=== PATIENT | female | born 1975 | race Caucasian/White ===

== ENCOUNTER → 2019-01-28 13:23 | Outpatient (CLI) | payer OTHER, SELFPAY ==
--- NOTE | 2019-01-28 13:29 | DI.US.S_ITS ---
LIMITED ULTRASOUND OF LEFT BREAST: 01/28/2019 CLINICAL: Palpable left breast lump. [facility] and real-time ultrasound of the left breast retroareolar were performed. Stewart scale images of the real-time examination were reviewed. There is a benign 1.9 cm x 1.5 cm x 1.3 cm cyst in the left breast at 10 o'clock anterior depth. This cyst is anechoic. This correlates as palpated. Color flow imaging demonstrates that there is no vascularity present. IMPRESSION: PROBABLY BENIGN The 1.9 cm x 1.5 cm x 1.3 cm cyst in the left breast is consistent with a simple cyst and is benign. A follow-up left mammogram in 6 months is recommended to demonstrate stability of probably benign calcifications seen by mammogram. Findings and recommendations were conveyed to the patient at time of exam. This exam was interpreted at Station ID: [id number]. Electronically Signed By: Darlene fritz/:01/28/2019 16:55:41 letter sent: Followup Recommended Ultrasound BI-RADS: 3 Probably benign
--- NOTE | 2019-01-28 13:29 | DI.MG.S_ITS ---
BILATERAL DIGITAL DIAGNOSTIC MAMMOGRAM 3D/2D: 01/28/2019 CLINICAL: Left breast lump. No prior exams were available for comparison. The tissue of both breasts is extremely dense, which lowers the sensitivity of mammography. There is a 2 cm round low density mass with an obscured and indistinct margin in the left breast central to the nipple anterior depth. There are also grouped fine rim calcifications in the left breast middle depth central to the nipple seen on the mediolateral oblique view only. No other significant masses, calcifications, or other findings are seen in either breast. IMPRESSION: INCOMPLETE: NEEDS ADDITIONAL IMAGING EVALUATION The grouped fine rim calcifications in the left breast middle depth central to the nipple seen on the mediolateral oblique view only are probably benign. A follow-up mammogram in 6 months is recommended. The 2 cm round low density mass in the left breast central to the nipple anterior depth is indeterminate. An ultrasound is recommended. This was performed immediately following this exam. This exam was interpreted at Station ID: [id number]. NOTE: For mammograms, a report in lay terms will be sent to the patient. Approximately 15% of breast malignancies will not be visualized mammographically. In the management of a palpable breast mass, a negative mammogram must not discourage biopsy of a clinically suspicious lesion. Electronically Signed By: Darlene fritz/:01/28/2019 16:52:58 ACR BI-RADS Category 0: Incomplete 3340F
== END ==
PROVIDERS: PCP Family Medicine; Visit Provider Family Medicine
DX: R92.8 Other abnormal and inconclusive findings on diagnostic imaging of breast (principal); N60.02 Solitary cyst of left breast
CPT/HCPCS: 76642; 77066; G0279

== ENCOUNTER → 2019-08-02 09:12 | Outpatient (CLI) | payer OTHER, SELFPAY ==
--- NOTE | 2019-08-02 09:14 | DI.MG.S_ITS ---
UNILATERAL LEFT DIGITAL DIAGNOSTIC MAMMOGRAM 3D/2D SHORT-TERM FOLLOW-UP: 08/02/2019 CLINICAL: Patient returns for a 6 month follow up of the left breast. Comparison is made to exams dated: 01/28/2019 mammogram - [facility], 04/03/2009 mammogram - [facility], and 01/28/2019 ultrasound - [facility]. The tissue of left breast is extremely dense, which lowers the sensitivity of mammography. Previously noted grouped fine and rim calcifications in the left breast middle depth central to the nipple and lower outer quadrant are more prominent than on prior comparison exams. Although some demonstrate layering on lateral views, others demonstrate a more concerning grouped fine appearance that is more prominent on the current exam. Previously noted 2 cm round low density mass/focal asymmetry with an obscured and indistinct margin in the left breast central to the nipple anterior depth noted on comparison diagnostic mammogram of 01/28/19 is less prominent on the current exam of 08/02/2019, and reportedly correlated with a cyst on comparison left breast ultrasound of 01/28/19. IMPRESSION: SUSPICIOUS OF MALIGNANCY Previously noted grouped fine and rim calcifications in the left breast middle depth central to the nipple and lower outer quadrant are more prominent than on prior comparison exams. Although some demonstrate layering on lateral views suggestive of milk of calcium calcifications, others demonstrate a more concerning grouped fine appearance that is more prominent on the current exam. A stereotactic biopsy is recommended. These results and recommendations were discussed with the patient in person at the time of the exam by [facility] Radiologist Dr. Flo Stafford. This exam was interpreted at Station ID: [id number]. NOTE: For mammograms, a report in lay terms will be sent to the patient. Approximately 15% of breast malignancies will not be visualized mammographically. In the management of a palpable breast mass, a negative mammogram must not discourage biopsy of a clinically suspicious lesion. Electronically Signed By: Richy Davila M.D. ecl/:08/02/2019 10:00:36 letter sent: Biopsy Required ACR BI-RADS Category 4: Suspicious abnormality 3344F
== END ==
PROVIDERS: PCP Family Medicine; Visit Provider Family Medicine
DX: R92.8 Other abnormal and inconclusive findings on diagnostic imaging of breast (principal); R92.1 Mammographic calcification found on diagnostic imaging of breast
CPT/HCPCS: 77065; G0279

== ENCOUNTER → 2020-05-29 12:28 | Outpatient (CLI) | payer OTHER, SELFPAY ==
[2020-05-29 14:37] LABS: COVID19 -Nasal RAPID POSITIVE (Negative)
== END ==
PROVIDERS: PCP Family Medicine; Visit Provider Physician Assistant
DX: U07.1 COVID-19 (principal); J02.9 Acute pharyngitis, unspecified
CPT/HCPCS: 87070; 87635

== ENCOUNTER → 2020-08-23 15:03 | Outpatient (CLI) | payer OTHER, SELFPAY ==
--- NOTE | 2020-08-23 15:05 | DI.MG.S_ITS ---
BILATERAL DIGITAL DIAGNOSTIC MAMMOGRAM 3D/2D: 08/23/2020 CLINICAL: Late short term follow up, due bilateral. Comparison is made to exams dated: 08/11/2019 stereotactic biopsy - [facility], 08/02/2019 mammogram, 01/28/2019 mammogram - [facility], and 04/03/2009 mammogram - [facility]. The tissue of both breasts is extremely dense, which lowers the sensitivity of mammography. There are regional fine punctate calcifications in the left breast central to the nipple anterior depth. These are not significantly changed. There is a biopsy clip associated with the calcifications. No other significant masses, calcifications, or other findings are seen in either breast. IMPRESSION: BENIGN The regional fine punctate calcifications in the left breast likely represent milk of calcium and are benign. There is no mammographic evidence of malignancy. A 1 year screening mammogram is recommended. This exam was interpreted at Station ID: [id number]. NOTE: For mammograms, a report in lay terms will be sent to the patient. Approximately 15% of breast malignancies will not be visualized mammographically. In the management of a palpable breast mass, a negative mammogram must not discourage biopsy of a clinically suspicious lesion. Electronically Signed By: Nam mulligan/mercedez:08/23/2020 15:58:09 letter sent: Normal Exam ACR BI-RADS Category 2: Benign Finding(s) 3342F
== END ==
PROVIDERS: PCP Family Medicine; Referring Provider Family Medicine; Visit Provider Family Medicine
DX: R92.1 Mammographic calcification found on diagnostic imaging of breast (principal)
CPT/HCPCS: 77066; G0279

== ENCOUNTER 2022-08-17 19:44 | Emergency (ER) | payer OTHER, SELFPAY ==
[2022-08-17 20:12] VITALS: BP 113/57; PULSE 69; RESP 18; TEMP 36.6; O2SAT 100; BMI 22.6
--- NOTE | 2022-08-17 22:03 | ED.GENADULT ---
HPI - General Adult General Chief complaint: Extremity Injury, Upper Stated complaint: Left pointer fingertip cut off Time Seen by Provider: 08/17/22 21:59 Source: patient Mode of arrival: Ambulatory Limitations: no limitations History of Present Illness HPI narrative: 47-year-old female who is here for evaluation of an injury that she sustained to the tip of her left index finger. It occurred when she was chopping wood. She did cover the area with a bandage. She is unsure if there is bone exposed. Related Data Previous Rx's Medication Instructions Recorded valacyclovir 1 gram tablet 1,000 mg PO DAILY #30 tabs 09/25/20 Allergies Allergy/AdvReac Type Severity Reaction Status Date / Time No Known Drug Allergies Allergy Verified 05/29/20 12:27 Review of Systems Musculoskeletal Musculoskeletal: Reports system reviewed and no additional complaints, except as documented Integumentary/Breasts Skin/Breast: Reports system reviewed and no additional complaints, except as documented Neurologic Neurologic: Reports system reviewed and no additional complaints, except as documented Patient History Medical History Abnormal Pap smear of cervix (~2001) Chicken pox (~1981) Hearing loss Plantar warts Seasonal allergies (~1986) Surgical History Anesthesia Kidney stones (~1996) Family History Father Heart disease History of heart attack Brother Hypertension Grandmother Hyperlipidemia Grandmother History of emphysema Social History marital status: number of children: 4 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 She did get the very tip of her finger nail but the base of the nail is unremarkable. There is no active bleeding. There is no bone exposure. Neuro Sensory Exam: no sensory deficits noted Procedures Nerve Block Nerve Block 1: Local Anesthetic: lidocaine 1% Amount of anesthesia used (mL): 3 Side: left Nerve Blocks: digital Procedure Successful: Yes Patient Tolerated Procedure: Well and No complications Course Orders Ordered: Discontinued Medications Bacitracin (Bacitracin Oint 0.9 Gm Pckt) 1 applic TOP NOW ONE Stop: 08/17/22 22:40 Vital Signs Vital signs: Vital Signs - 8 hr 08/17/22 23:22 Temperature 97.1 F L Pulse Rate 70 Respiratory Rate 16 Blood Pressure 114/64 Pulse Oximetry 100 Oxygen Delivery Method Room Air Medical Decision Making Differential Diagnosis Differential Diagnosis: Fractures, dislocation, bone exposure and others MDM Narrative Medical decision making narrative: Nerve block was performed. The wound was irrigated and cleaned. There is no bone exposure. Due to the nature of the wound there is nothing that can be sutured. Antibiotic ointment was placed over the area and a bandage was placed over top. This will heal by secondary intention. Patient was given care instructions and return precautions. She expressed understanding and agreement. Discharge Plan Departure Patient Disposition: Home Clinical Impression: Avulsion of skin of finger Activity Restrictions/Additional Instructions: I recommend that you leave the bandage that was placed in the emergency department in place for the next 24 hours. After that you can take it off. You can put topical antibiotic ointment over the area. Cover it as best as you can with a bandage like we discussed. Return to the emergency department for any new symptoms. Prescriptions: No Action valacyclovir 1 gram tablet 1,000 mg PO DAILY Qty: 30 2RF Referrals: Beverly Denise DO [Primary Care Provider] - Stand Alone Forms: Patient Portal/API
[2022-08-17 23:22] VITALS: BP 114/64; PULSE 70; RESP 16; TEMP 36.2; O2SAT 100
== END 2022-08-17 23:20 | disposition home or self-care (01) ==
PROVIDERS: Emergency Provider Emergency Medicine; PCP Family Medicine
DX: S61.201A Unspecified open wound of left index finger without damage to nail, initial encounter (principal); X58.XXXA Exposure to other specified factors, initial encounter
CPT/HCPCS: 64450; 99281; 99282

== ENCOUNTER → 2023-07-03 11:08 | Outpatient (CLI) | payer OTHER, SELFPAY ==
[2023-07-03 12:07] LABS: Free T4, Direct Thyroxine 1.15 ng/dL (0.78-2.19)
[2023-07-03 12:21] LABS: Thyroid Stimulating Hormone 2.35 uIU/mL (0.47-4.68)
[2023-07-03 18:41] LABS: Vitamin D 25 Hydroxy (D3) 38.2 ng/mL (30.0-100.0)
== END ==
PROVIDERS: PCP Physician Assistant Medical; Referring Provider Physician Assistant Medical; Visit Provider Physician Assistant Medical
DX: E06.3 Autoimmune thyroiditis (principal); E55.9 Vitamin D deficiency, unspecified
CPT/HCPCS: 36415; 82306; 84439; 84443